=== PATIENT | female | born 1970 | race American Indian/Alaskan Native ===

== ENCOUNTER 2016-07-30 12:14 | Outpatient (CLI) | payer MEDICARE ==
--- NOTE | 2016-07-30 15:04 | Mammography Report ---
BILATERAL MAMMOGRAM: FINDINGS: The breasts are almost entirely fat (<25% glandular). No mass, distortion, suspicious calcification, or skin change is seen. There are no significant changes compared to her prior exams in 2015. CAD was utilized. IMPRESSION: Negative mammogram. There is no mammographic evidence of malignancy. RECOMMENDATION: Follow-up per ACS guidelines. BI-RADS CATEGORY: 1 = Negative ACR BI-RADS MAMMOGRAPHIC CODES: 0 = Needs additional imaging evaluation; 1 = Negative; 2 = Benign; 3 = Probably benign; 4 = Suspicious; 5 = Malignant; 6 = Known biopsy-proven malignancy COMMENT: 1. Dense breast tissue, i.e., adenosis, fibrocystic changes, etc., may obscure an underlying neoplasm. 2. Approximately 10% of cancers are not detected with mammography. 3. A negative mammography report should not delay biopsy if a clinically suspicious mass is present. COMMENT: Patient follow-up letters are generated in [employer].
== END 2016-07-30 12:15 | disposition home or self-care (01) ==
LOC: MAMMO 12:14
PROVIDERS: ATTEND Nurse Practitioner Family
DX: Z12.31 Encounter for screening mammogram for malignant neoplasm of breast (principal)
CPT/HCPCS: 77067; G0202

== ENCOUNTER 2018-03-23 08:34 | Emergency (ER) | payer MEDICARE ==
[2018-03-23 08:43] VITALS: BP 131/83
[2018-03-23] MEDS ORDERED: DELTASONE PO ONE (08:52)
[2018-03-23] MEDS ORDERED: ULTRAM PO ONE (08:52)
[2018-03-23 09:10] LABS: Hematocrit 45.1 % (30.3-42.9); Hemoglobin 15.6 gm/dl (10.1-14.3); Mean Corpuscular HGB Conc 35 % (30-34); Mean Corpuscular Volume 97 fl (79-97); Platelet Count 216 K/mm3 (140-440); Red Blood Count 4.63 M/mm3 (3.65-5.03); Red Cell Distribution Width 12.8 % (13.2-15.2)
--- NOTE | 2018-03-23 09:11 | Emergency Department Report ---
ED Back Pain/Injury HPI - General Chief Complaint: Extremity Problem,Nontraumatic Stated Complaint: RIGHT FOOT PAIN/SWELLING Time Seen by Provider: 03/23/18 08:52 Source: patient Limitations: No Limitations - History of Present Illness Initial Comments: Patient is a 47-year-old -[place] female comes to the ER tonight complaining of right foot pain. She has had no trauma. It started 2 days ago. Nothing makes it better or worse. She has no history of gout. Her only home medication is blood pressure medicines. - Related Data Home Medications Medication Instructions Recorded Confirmed Last Taken Emtricita/Rilpivirine/Tenof Df 1 tab PO DAILY 02/02/15 04/07/15 02/14/15 [Complera Tablet] Previous Rx's Medication Instructions Recorded Last Taken Type Albuterol Sulfate [Albuterol 0.63% 0.63 mg IH Q4HR PRN #2 ml 04/07/15 Unknown Rx NEBS] Albuterol Sulfate [Proair 90 mcg IH Q4HR PRN #2 aer.pow.ba 04/07/15 Unknown Rx Respiclick] Ipratropium [place] [Atrovent Hfa] 12.9 gm IH Q4HR #2 hfa.aer.ad 04/07/15 Unknown Rx Ipratropium [Atrovent NEB] 0.5 mg IH Q4HR #2 ml 04/07/15 Unknown Rx Naproxen [Naprosyn] 500 mg PO BID PRN #20 tablet 03/23/18 Unknown Rx predniSONE [Prednisone] 50 mg PO DAILY #5 tablet 03/23/18 Unknown Rx traMADol [Ultram] 50 mg PO Q8H PRN #12 tablet 03/23/18 Unknown Rx Allergies Allergy/AdvReac Type Severity Reaction Status Date / Time No Known Allergies Allergy Verified 02/23/15 15:21 ED Review of Systems ROS: Stated complaint: RIGHT FOOT PAIN/SWELLING Other details as noted in HPI Comment: All other systems reviewed and negative Constitutional: denies: chills Eyes: denies: eye pain ENT: denies: ear pain Respiratory: denies: cough Cardiovascular: denies: dyspnea on exertion Endocrine: denies: see HPI Gastrointestinal: denies: nausea Genitourinary: denies: urgency Musculoskeletal: as per HPI, other (r foot pain) Skin: denies: rash Neurological: denies: headache Psychiatric: denies: anxiety Hematological/Lymphatic: denies: easy bleeding ED Past Medical Hx - Past Medical History ANEMIA Psychiatric history: no pertinent history ED Back Pain Physical Exam - Exam General: Vital signs noted. No distress. Alert and acting appropriately. ambulatory full ROM of foot/ankle neurovasc intact dp plus 2 bilateral sensation normal hx arthritis Back/Abdomen: No Abdominal Tenderness, No Perithoracic Tenderness, No Perilumbar Tenderness, No Sacroiliac Tenderness, No Flank Tenderness, No Straight Leg Raise Pain Neuro: Yes Normal Sensation, Yes Normal DTR's, Yes Normal Gait, No Motor Weakness ED Course Vital Signs 03/23/18 08:39 Temperature 97.8 F Pulse Rate 72 Respiratory 20 Rate Blood Pressure 131/83 O2 Sat by Pulse 98 Oximetry ED Medical Decision Making - Lab Data Result diagrams: 03/23/18 08:54 03/23/18 08:54 - Medical Decision Making Lab Results 03/23/18 03/23/18 Range/Units 08:54 08:54 WBC 5.3 (4.5-11.0) K/mm3 RBC 4.63 (3.65-5.03) M/mm3 Hgb 15.6 H (10.1-14.3) gm/dl Hct 45.1 H (30.3-42.9) % MCV 97 (79-97) fl MCH 34 H (28-32) pg MCHC 35 H (30-34) % RDW 12.8 L (13.2-15.2) % Plt Count 216 (140-440) K/mm3 Sodium 140 (137-145) mmol/L Potassium 3.8 (3.6-5.0) mmol/L Chloride 99.1 (98-107) mmol/L Carbon Dioxide 28 (22-30) mmol/L Anion Gap 17 mmol/L BUN 11 (7-17) mg/dL Creatinine 1.0 (0.7-1.2) mg/dL Estimated GFR > 60 ml/min BUN/Creatinine Ratio 11 % Glucose 71 (65-100) mg/dL Uric Acid 5.9 (3.5-7.6) mg/dL Calcium 9.5 (8.4-10.2) mg/dL Labs noted given no trauma will treat conservatively and dc home with dc plan of care. Critical care attestation.: If time is entered above; I have spent that time in minutes in the direct care of this critically ill patient, excluding procedure time. ED Disposition Clinical Impression: Arthritis, Foot pain Disposition: - TO HOME OR SELFCARE Is pt being admited?: No Does the pt Need Aspirin: No Condition: Stable Instructions: Arthralgia (ED) Additional Instructions: rest elevate foot warm compresses meds as ordered today follow up pcp in 48 hours if persists diet as tolerated Prescriptions: Naproxen [Naprosyn] 500 mg PO BID PRN #20 tablet PRN Reason: Pain , Severe (7-10) predniSONE [Prednisone] 50 mg PO DAILY #5 tablet traMADol [Ultram] 50 mg PO Q8H PRN #12 tablet PRN Reason: Pain Referrals: MARIA ESTHER LEIGH MD [Staff Physician] - 3-5 Days Time of Disposition: 09:37
[2018-03-23 09:23] LABS: BUN/Creatinine Ratio 11; Blood Urea Nitrogen 11 mg/dL (7-17); Calcium 9.5 mg/dL (8.4-10.2); Hemolysis Index 14; Uric Acid 5.9 mg/dL (3.5-7.6)
== END 2018-03-23 10:21 | disposition home or self-care (01) ==
LOC: ED 08:34
DX: M19.071 Primary osteoarthritis, right ankle and foot (principal); D64.9 Anemia, unspecified
CPT/HCPCS: 36415; 80048; 84550; 85027; 99283; J7512

== ENCOUNTER 2018-04-09 22:18 | Emergency (ER) | payer MEDICARE ==
[2018-04-09 23:29] LABS: Basophils # (Auto) 0.1 K/mm3 (0.0-0.1); Basophils % (Auto) 0.6 % (0.0-1.8); Eosinophils # (Auto) 0.1 K/mm3 (0.0-0.4); Eosinophils % (Auto) 1.3 % (0.0-4.3); Hematocrit 46.9 % (30.3-42.9); Hemoglobin 16.1 gm/dl (10.1-14.3); Lymphocytes # (Auto) 1.4 K/mm3 (1.2-5.4); Lymphocytes % (Auto) 16.4 % (13.4-35.0); Mean Corpuscular HGB Conc 34 % (30-34); Mean Corpuscular Volume 98 fl (79-97); Monocytes # (Auto) 0.7 K/mm3 (0.0-0.8); Monocytes % (Auto) 8.5 % (0.0-7.3); Platelet Count 233 K/mm3 (140-440); Red Cell Distribution Width 12.9 % (13.2-15.2)
[2018-04-09] MEDS ORDERED: IBUPROFEN PO ONE (23:43)
[2018-04-09 23:44] LABS: BUN/Creatinine Ratio 15; Blood Urea Nitrogen 12 mg/dL (7-17); Calcium 9.4 mg/dL (8.4-10.2); Hemolysis Index 28
--- NOTE | 2018-04-09 23:54 | Emergency Department Report ---
ED General Adult HPI - General Chief complaint: Fever Stated complaint: CHEST PAIN Time Seen by Provider: 04/09/18 23:31 Source: patient Mode of arrival: Ambulatory Limitations: No Limitations - History of Present Illness Initial comments: 47-year-old female presents to ED with complaint of fever. Patient states she received the flu and pneumonia vaccines today. Patient currently having pain in her left upper arm where she received her pneumonia vaccine. She reports onset of chest and back pain, fever, body aches following her vaccine. She was a symptomatic prior to the shots. -: This afternoon Location: left, upper extremity Quality: aching Consistency: constant Improves with: none Worsens with: none Associated Symptoms: chest pain, fever/chills. denies: cough, headaches, nausea/vomiting, shortness of breath - Related Data Home Medications Medication Instructions Recorded Confirmed Last Taken Emtricita/Rilpivirine/Tenof Df 1 tab PO DAILY 02/02/15 04/07/15 02/14/15 [Complera Tablet] Previous Rx's Medication Instructions Recorded Last Taken Type Albuterol Sulfate [Albuterol 0.63% 0.63 mg IH Q4HR PRN #2 ml 04/07/15 Unknown Rx NEBS] Albuterol Sulfate [Proair 90 mcg IH Q4HR PRN #2 aer.pow.ba 04/07/15 Unknown Rx Respiclick] Ipratropium [place] [Atrovent Hfa] 12.9 gm IH Q4HR #2 hfa.aer.ad 04/07/15 Unknown Rx Ipratropium [Atrovent NEB] 0.5 mg IH Q4HR #2 ml 04/07/15 Unknown Rx Naproxen [Naprosyn] 500 mg PO BID PRN #20 tablet 03/23/18 Unknown Rx predniSONE [Prednisone] 50 mg PO DAILY #5 tablet 03/23/18 Unknown Rx traMADol [Ultram] 50 mg PO Q8H PRN #12 tablet 03/23/18 Unknown Rx Allergies Allergy/AdvReac Type Severity Reaction Status Date / Time No Known Allergies Allergy Verified 02/23/15 15:21 ED Review of Systems ROS: Stated complaint: CHEST PAIN Other details as noted in HPI Comment: All other systems reviewed and negative Constitutional: fever Respiratory: denies: cough, shortness of breath Cardiovascular: chest pain Gastrointestinal: denies: abdominal pain, nausea, vomiting Musculoskeletal: back pain, myalgia ED Past Medical Hx - Past Medical History Previous Medical History?: Yes Hx Hypertension: Yes (x 5 yrs) Hx Congestive Heart Failure: No Hx Diabetes: No Hx Asthma: Yes Hx COPD: No Hx HIV: Yes (dx 1990) Additional medical history: ANEMIA - Surgical History Past Surgical History?: Yes Additional Surgical History: x 2. HYSTERECTOMY. TL - Social History Smoking Status: Never Smoker Substance Use Type: None - Medications Home Medications: Home Medications Medication Instructions Recorded Confirmed Last Taken Type Emtricita/Rilpivirine/Tenof Df 1 tab PO DAILY 02/02/15 04/07/15 02/14/15 History [Complera Tablet] Albuterol Sulfate [Albuterol 0.63% 0.63 mg IH Q4HR PRN #2 ml 04/07/15 Unknown Rx NEBS] Albuterol Sulfate [Proair 90 mcg IH Q4HR PRN #2 aer.pow.ba 04/07/15 Unknown Rx Respiclick] Ipratropium [place] [Atrovent Hfa] 12.9 gm IH Q4HR #2 hfa.aer.ad 04/07/15 Unknown Rx Ipratropium [Atrovent NEB] 0.5 mg IH Q4HR #2 ml 04/07/15 Unknown Rx Naproxen [Naprosyn] 500 mg PO BID PRN #20 tablet 03/23/18 Unknown Rx predniSONE [Prednisone] 50 mg PO DAILY #5 tablet 03/23/18 Unknown Rx traMADol [Ultram] 50 mg PO Q8H PRN #12 tablet 03/23/18 Unknown Rx ED Physical Exam - General Limitations: No Limitations General appearance: alert, in no apparent distress - Head Head exam: Present: atraumatic, normocephalic - Eye Eye exam: Present: normal appearance - ENT ENT exam: Present: mucous membranes moist - Neck Neck exam: Present: normal inspection - Respiratory Respiratory exam: Present: normal lung sounds bilaterally. Absent: respiratory distress - Cardiovascular Cardiovascular Exam: Present: normal rhythm, tachycardia - GI/Abdominal GI/Abdominal exam: Present: soft. Absent: distended, tenderness - Extremities Exam Extremities exam: Present: other (swelling present to left upper arm, no erythema or induration) - Back Exam Back exam: Absent: CVA tenderness (R), CVA tenderness (L) - Neurological Exam Neurological exam: Present: alert, oriented X3 - Psychiatric Psychiatric exam: Present: normal affect, normal mood - Skin Skin exam: Present: warm, dry, intact, normal color ED Course Vital Signs 04/09/18 04/09/18 04/10/18 22:45 23:38 00:24 Temperature 99.5 F 100.3 F H Pulse Rate 129 H 102 H 105 H Respiratory 18 19 19 Rate Blood Pressure 130/95 Blood Pressure 135/83 119/85 [Right] O2 Sat by Pulse 98 100 98 Oximetry ED Medical Decision Making - Lab Data Result diagrams: 04/09/18 23:05 04/09/18 23:05 - EKG Data -: EKG Interpreted by Me EKG shows normal: sinus rhythm, axis, intervals, QRS complexes, ST-T waves Rate: tachycardia - EKG Data Interpretation: no acute changes Critical care attestation.: If time is entered above; I have spent that time in minutes in the direct care of this critically ill patient, excluding procedure time. ED Disposition Clinical Impression: Vaccination complication Disposition: - TO HOME OR SELFCARE Is pt being admited?: No Condition: Stable Instructions: Fever in Adults (ED) Referrals: DALLAS PIRES MD [Primary Care Provider] - 3-5 Days Time of Disposition: 00:58
[2018-04-10 01:10] VITALS: BP 106/64
== END 2018-04-10 01:10 | disposition home or self-care (01) ==
LOC: ED 22:18
DX: T88.1XXA Other complications following immunization, not elsewhere classified, initial encounter (principal); I10 Essential (primary) hypertension; J45.909 Unspecified asthma, uncomplicated; Z86.2 Personal history of diseases of the blood and blood-forming organs and certain disorders involving the immune mechanism; Z90.710 Acquired absence of both cervix and uterus; Z79.899 Other long term (current) drug therapy
CPT/HCPCS: 36415; 80048; 84484; 85025; 93005; 93010

== ENCOUNTER 2018-11-11 14:21 | Outpatient (CLI) | payer MEDICARE ==
--- NOTE | 2018-11-11 16:05 | Mammography Report ---
BILATERAL DIGITAL SCREENING MAMMOGRAM WITH CAD INDICATION: Routine screening mammography. TECHNIQUE: Digital bilateral 2D mammography was obtained in the craniocaudal and mediolateral obliq ue projections. This examination was interpreted with the benefit of Computer-Aided Detection analysi s. COMPARISON: 07/30/2016 FINDINGS: Breast Density: The breasts are almost entirely fatty. No mass, architectural distortion or suspicious calcifications. IMPRESSION:No mammographic evidence of malignancy. BI-RADS Category 1: Negative. No mammographic evidence of malignancy. Recommend routine screening m ammography in one year. A "normal" or negative report should not discourage follow up or biopsy of a clinically significant f inding. A written summary of these findings will be mailed to the patient. The patient will be entered into a mammography reporting system which will generate a reminder letter for the patient's next appointmen t at the appropriate interval. The [employer] recommends yearly mammograms starting at age 40 and continuing as l marivel as a woman is in good health. Breast MRI is recommended for women with an approximate 20-25% or greater lifetime risk of breast cancer, including women with a strong family history of breast or ova kulwinder cancer or who have been treated for Hodgkin's disease. Signer Name: Cristofer Sutton MD Signed: 11/11/2018 4:01 PM Workstation Name: [id number]
== END 2018-11-11 14:22 | disposition home or self-care (01) ==
LOC: MAMMO 14:21
PROVIDERS: ATTEND Pediatrics
DX: Z12.31 Encounter for screening mammogram for malignant neoplasm of breast (principal); J45.909 Unspecified asthma, uncomplicated; I10 Essential (primary) hypertension
CPT/HCPCS: 77067

== ENCOUNTER 2019-02-14 15:32 | Emergency (ER) | payer MEDICARE ==
--- NOTE | 2019-02-14 16:25 | Emergency Department Report ---
Blank Doc - Documentation Documentation: 48-year-old female that presents with SOB, wheezing, and cough. This initial assessment/diagnostic orders/clinical plan/treatment(s) is/are subject to change based on patient's health status, clinical progression and re- assessment by fellow clinical providers in the ED. Further treatment and workup at subsequent clinical providers discretion. Patient/guardians urged not to elope from the ED as their condition may be serious if not clinically assessed and managed. Initial orders include: 1- Patient sent to [facility] for further evaluation and treatment 2- CXR 3- breathing treatment/steroids
[2019-02-14] MEDS ORDERED: ALBUTEROL 2.5 MG/3 ML NEBU IH ONE (16:26)
[2019-02-14] MEDS ORDERED: dexAMETHasone 20 MG/5 ML VIAL IM ONE (16:26)
[2019-02-14] MEDS ORDERED: IPRATROPIUM 0.02% NEBU 2.5 ML IH ONE (16:26)
--- NOTE | 2019-02-14 17:08 | XRay Report ---
CHEST 2 VIEWS INDICATION: MAIN: cough/wheezing/sob; Pt. c/o SOB, chills, cough and chest tightness. Pt. has hx of asthma, HIV and Htn. . COMPARISON: Chest x-ray from 04/07/2015 FINDINGS: Support devices: None. Heart: Within normal limits. Lungs/pleura: No acute air space or interstitial disease. No pneumothorax. Additional findings: None. IMPRESSION: 1. No acute findings. Signer Name: Tang Galindo MD Signed: 02/14/2019 5:04 PM Workstation Name: [id number]
--- NOTE | 2019-02-14 19:10 | Emergency Department Report ---
ED Asthma HPI - General Chief Complaint: Upper Respiratory Infection Stated Complaint: HARD TO BREATH Time Seen by Provider: 02/14/19 16:24 Source: patient Mode of arrival: Ambulatory Limitations: No Limitations - History of Present Illness Initial Comments: This is a 48-year-old -[place] female with a history of asthma, hypertension, and HIV. Patient states she's been experiencing shortness of breath and wheezing for the past 2 days. Patient denies fevers or chills patient has h ad one episode of nausea vomiting, however she is tolerating by mouth intake at this time. As a sensory level 4/10 with primary symptom of wheezing. patient advises adherence with all medications including antivirals. There ie no cp , no dizziness, no lightheadedness, no fever or chills, no n/v , no back pain , diaphoresis. MD Complaint: shortness of breath, wheezing -: Gradual Asthma History: childhood onset Severity: moderate Context: recent URI Associated Symptoms: dry cough Treatments Prior to Arrival: inhaled bronchodilator - Related Data Current Asthma Therapy: inhaled bronchodilator Home Medications Medication Instructions Recorded Confirmed Last Taken Emtricita/Rilpivirine/Tenof Df 1 tab PO DAILY 02/02/15 04/07/15 02/14/15 [Complera Tablet] Previous Rx's Medication Instructions Recorded Last Taken Type Albuterol Sulfate [Albuterol 0.63% 0.63 mg IH Q4HR PRN #2 ml 04/07/15 Unknown Rx NEBS] Albuterol Sulfate [Proair 90 mcg IH Q4HR PRN #2 aer.pow.ba 04/07/15 Unknown Rx Respiclick] Ipratropium [place] [Atrovent Hfa] 12.9 gm IH Q4HR #2 hfa.aer.ad 04/07/15 Unknown Rx Ipratropium [Atrovent NEB] 0.5 mg IH Q4HR #2 ml 04/07/15 Unknown Rx Naproxen [Naprosyn] 500 mg PO BID PRN #20 tablet 03/23/18 Unknown Rx predniSONE [Prednisone] 50 mg PO DAILY #5 tablet 03/23/18 Unknown Rx traMADoL [Ultram] 50 mg PO Q8H PRN #12 tablet 03/23/18 Unknown Rx ALBUTEROL Inhaler (OR & NICU) 2 puff IH QID PRN #8.5 gram 02/14/19 Unknown Rx [ProAir HFA Inhaler] Azithromycin [Zithromax Z-HUSSEIN] 250 mg PO DAILY #1 tab 02/14/19 Unknown Rx Benzonatate [Tessalon Perles] 100 mg PO Q8HR PRN #30 capsule 02/14/19 Unknown Rx Ibuprofen [Motrin 800 MG tab] 800 mg PO Q8HR PRN #30 tablet 02/14/19 Unknown Rx Ipratropium (Nf) [Atrovent HFA 2 puff IH Q6HR PRN #1 inha 02/14/19 Unknown Rx 17MCG/PUFF] dexAMETHasone [Decadron] 4 mg PO Q12H 3 Days #6 tablet 02/14/19 Unknown Rx Allergies Allergy/AdvReac Type Severity Reaction Status Date / Time No Known Allergies Allergy Verified 02/23/15 15:21 ED Review of Systems ROS: Stated complaint: HARD TO BREATH Other details as noted in HPI Constitutional: denies: chills, fever Eyes: denies: eye pain, eye discharge, vision change ENT: congestion Respiratory: cough, shortness of breath, wheezing Cardiovascular: denies: chest pain, palpitations Endocrine: no symptoms reported Gastrointestinal: denies: abdominal pain, nausea, vomiting, diarrhea Genitourinary: denies: urgency, dysuria, discharge Musculoskeletal: denies: back pain, joint swelling, arthralgia Skin: denies: rash, lesions Neurological: denies: headache, weakness, paresthesias Psychiatric: as per HPI Hematological/Lymphatic: denies: easy bleeding, easy bruising ED Past Medical Hx - Past Medical History Previous Medical History?: Yes Hx Hypertension: Yes (x 5 yrs) Hx Congestive Heart Failure: No Hx Diabetes: No Hx Asthma: Yes Hx COPD: No Hx HIV: Yes (dx 1990) Additional medical history: ANEMIA - Surgical History Past Surgical History?: Yes Additional Surgical History: x 2. HYSTERECTOMY. TL - Social History Smoking Status: Never Smoker Substance Use Type: None - Medications Home Medications: Home Medications Medication Instructions Recorded Confirmed Last Taken Type Emtricita/Rilpivirine/Tenof Df 1 tab PO DAILY 02/02/15 04/07/15 02/14/15 History [Complera Tablet] Albuterol Sulfate [Albuterol 0.63% 0.63 mg IH Q4HR PRN #2 ml 04/07/15 Unknown Rx NEBS] Albuterol Sulfate [Proair 90 mcg IH Q4HR PRN #2 aer.pow.ba 04/07/15 Unknown Rx Respiclick] Ipratropium [place] [Atrovent Hfa] 12.9 gm IH Q4HR #2 hfa.aer.ad 04/07/15 Unknown Rx Ipratropium [Atrovent NEB] 0.5 mg IH Q4HR #2 ml 04/07/15 Unknown Rx Naproxen [Naprosyn] 500 mg PO BID PRN #20 tablet 03/23/18 Unknown Rx predniSONE [Prednisone] 50 mg PO DAILY #5 tablet 03/23/18 Unknown Rx traMADoL [Ultram] 50 mg PO Q8H PRN #12 tablet 03/23/18 Unknown Rx ALBUTEROL Inhaler (OR & NICU) 2 puff IH QID PRN #8.5 gram 02/14/19 Unknown Rx [ProAir HFA Inhaler] Azithromycin [Zithromax Z-HUSSEIN] 250 mg PO DAILY #1 tab 02/14/19 Unknown Rx Benzonatate [Tessalon Perles] 100 mg PO Q8HR PRN #30 capsule 02/14/19 Unknown Rx Ibuprofen [Motrin 800 MG tab] 800 mg PO Q8HR PRN #30 tablet 02/14/19 Unknown Rx Ipratropium (Nf) [Atrovent HFA 2 puff IH Q6HR PRN #1 inha 02/14/19 Unknown Rx 17MCG/PUFF] dexAMETHasone [Decadron] 4 mg PO Q12H 3 Days #6 tablet 02/14/19 Unknown Rx ED Physical Exam - General Limitations: No Limitations General appearance: alert - Head Head exam: Present: atraumatic, normocephalic - Eye Eye exam: Present: normal appearance, PERRL, EOMI Pupils: Present: normal accommodation - ENT ENT exam: Present: normal orophraynx, mucous membranes moist, TM's normal bilaterally, normal external ear exam - Neck Neck exam: Present: normal inspection - Respiratory Respiratory exam: Present: normal lung sounds bilaterally. Absent: respiratory distress - Cardiovascular Cardiovascular Exam: Present: regular rate, normal rhythm. Absent: systolic murmur, diastolic murmur, rubs, gallop - GI/Abdominal GI/Abdominal exam: Present: soft, normal bowel sounds - Rectal Rectal exam: Present: deferred - Extremities Exam Extremities exam: Present: normal inspection, full ROM, normal capillary refill. Absent: tenderness - Back Exam Back exam: Present: normal inspection, full ROM. Absent: tenderness, CVA tenderness (R), CVA tenderness (L) - Neurological Exam Neurological exam: Present: alert, oriented X3, CN II-XII intact, normal gait, reflexes normal - Psychiatric Psychiatric exam: Present: normal affect, normal mood - Skin Skin exam: Present: warm, dry, intact, normal color. Absent: rash ED Course Vital Signs 02/14/19 02/14/19 02/14/19 16:26 19:37 19:50 Temperature 99.2 F Pulse Rate 103 H 114 H Respiratory 24 18 18 Rate Blood Pressure 199/117 186/96 O2 Sat by Pulse 99 92 92 Oximetry ED Medical Decision Making - EKG Data EKG shows normal: sinus rhythm, QRS complexes, ST-T waves Rate: normal - EKG Data Interpretation: normal EKG (ekg interp y ed attding ) - Radiology Data Radiology results: pending, report reviewed, image reviewed Ordering Physician: JANELL JEAN NP Date of Service: 02/14/19 Procedure(s): XR chest routine 2V Accession Number(s): [id number] cc: JANELL JEAN NP Fluoro Time In Minutes: CHEST 2 VIEWS INDICATION: MAIN: cough/wheezing/sob; Pt. c/o SOB, chills, cough and chest tightness. Pt. has hx of asthma, HIV and Htn. . COMPARISON: Chest x-ray from 04/07/2015 FINDINGS: Support devices: None. Heart: Within normal limits. Lungs/pleura: No acute air space or interstitial disease. No pneumothorax. Additional findings: None. IMPRESSION: 1. No acute findings. Signer Name: Tang Galindo MD Signed: 02/14/2019 5:04 PM Workstation Name: [id number] Transcribed By: INDU Dictated By: Tang Galindo MD Electronically Authenticated By: Tang Galindo MD Signed Date/Time: 02/14/191703 DD/ 02 TD/TT: - Medical Decision Making Patient states symptoms have improved in some bathroom and back without given increasing shortness of breath. pt is a/o 3 . mabulatory i Critical Care Time: No Critical care attestation.: If time is entered above; I have spent that time in minutes in the direct care of this critically ill patient, excluding procedure time. ED Disposition Clinical Impression: Bronchitis Asthma Qualifiers: Asthma severity: moderate Asthma persistence: unspecified Asthma complication type: with acute exacerbation Qualified Code(s): J45.901 - Unspecified asthma with (acute) exacerbation Disposition: OP ADMIT IP TO THIS HOSP Is pt being admited?: No Does the pt Need Aspirin: No Condition: Stable Instructions: Asthma (ED), Chronic Bronchitis (ED) Prescriptions: Ipratropium (Nf) [Atrovent HFA 17MCG/PUFF] 2 puff IH Q6HR PRN #1 inha PRN Reason: Shortness Of Breath dexAMETHasone [Decadron] 4 mg PO Q12H 3 Days #6 tablet Ibuprofen [Motrin 800 MG tab] 800 mg PO Q8HR PRN #30 tablet PRN Reason: Pain , Severe (7-10) ALBUTEROL Inhaler (OR & NICU) [ProAir HFA Inhaler] 2 puff IH QID PRN #8.5 gram PRN Reason: Shortness Of Breath Benzonatate [Tessalon Perles] 100 mg PO Q8HR PRN #30 capsule PRN Reason: cough Azithromycin [Zithromax Z-HUSSEIN] 250 mg PO DAILY #1 tab Referrals: CARLOS MANUEL PEDRAZA MD [Staff Physician] - 3-5 Days PRIMARY CARE, [Referring] - 3-5 Days Forms: Work/School Release Form(ED) Time of Disposition: 20:40
[2019-02-14 19:51] VITALS: BP 186/96
== END 2019-02-14 20:50 | disposition admitted as inpatient to this hospital (09) ==
LOC: ED 15:32
DX: J45.901 Unspecified asthma with (acute) exacerbation (principal); J40 Bronchitis, not specified as acute or chronic
CPT/HCPCS: 71046; 96372; 99283; J1100

== ENCOUNTER 2020-04-18 09:30 | Outpatient (CLI) | payer MEDICARE ==
--- NOTE | 2020-04-18 10:34 | Mammography Report ---
DIGITAL SCREENING MAMMOGRAM WITH CAD, 04/18/2020 CLINICAL INFORMATION / INDICATION: Routine screening mammography. TECHNIQUE: Digital bilateral 2D mammography was obtained in the craniocaudal and mediolateral obliqu e projections. This examination was interpreted with the benefit of Computer-Aided Detection analysis . COMPARISON: 11/11/2018 FINDINGS: Breast Density: The breasts are almost entirely fatty. No dominant mass, suspicious calcifications, or architectural distortion in either breast. No interval change. IMPRESSION: No mammographic evidence of malignancy. Follow up recommendation: Routine yearly BI-RADS Category 1: Negative. A "normal" or negative report should not discourage follow up or biopsy of a clinically significant f inding. A written summary of these findings will be mailed to the patient. The patient will be entered into a mammography reporting system which will generate a reminder letter for the patient's next appointmen t at the appropriate interval. The [employer] recommends yearly mammograms starting at age 40 and continuing as l marivel as a woman is in good health. Breast MRI is recommended for women with an approximate 20-25% or greater lifetime risk of breast cancer, including women with a strong family history of breast or ova kulwinder cancer or who have been treated for Hodgkin's disease. Signer Name: Elizabeth Verdin MD Signed: 04/18/2020 10:29 AM Workstation Name: [email or web address]
== END 2020-04-18 09:31 | disposition home or self-care (01) ==
LOC: MAMMO 09:30
PROVIDERS: ATTEND Pediatrics
DX: Z12.31 Encounter for screening mammogram for malignant neoplasm of breast (principal)
CPT/HCPCS: 77067

== ENCOUNTER 2021-03-25 10:23 | Emergency (ER) | payer MEDICARE ==
--- NOTE | 2021-03-25 12:27 | Emergency Department Report ---
ED Dizziness HPI - General Chief Complaint: Dizziness Stated Complaint: LIGHT HEAD Time Seen by Provider: 03/25/21 12:10 Source: patient Mode of arrival: Ambulatory Limitations: No Limitations - History of Present Illness Initial Comments: 50-year-old female presents to the ED with a history HIV ,Asthma ,Hypothyroid that she was lying in bed and attempted to get up and noticed that her head starts spinning and dizziness. Patient states that when she was able to sit in chair noticed that the spinning stopped. Patient has arrived in ED patient has no further complaint of dizziness. Patient denies any headache ,chest pain or shortness of breath. No acute distress noted. No ill appearance noted. MD Complaint: dizziness -: This morning Timing: sudden onset Description: "room spinning" History of Trauma: No Severity: mild Improves With: remaining still Worsens With: movement Associated Symptoms: denies other symptoms - Related Data Home Medications Medication Instructions Recorded Confirmed Last Taken Emtricita/Rilpivirine/Tenof Df 1 tab PO DAILY 02/02/15 04/07/15 02/14/15 [Complera Tablet] Previous Rx's Medication Instructions Recorded Last Taken Type Albuterol Sulfate [Albuterol 0.63% 0.63 mg IH Q4HR PRN #2 ml 04/07/15 Unknown Rx NEBS] Albuterol Sulfate [Proair 90 mcg IH Q4HR PRN #2 aer.pow.ba 04/07/15 Unknown Rx Respiclick] Ipratropium [place] [Atrovent Hfa] 12.9 gm IH Q4HR #2 hfa.aer.ad 04/07/15 Unknown Rx Ipratropium [Atrovent NEB] 0.5 mg IH Q4HR #2 ml 04/07/15 Unknown Rx Naproxen [Naprosyn] 500 mg PO BID PRN #20 tablet 03/23/18 Unknown Rx predniSONE [Prednisone] 50 mg PO DAILY #5 tablet 03/23/18 Unknown Rx traMADoL [Ultram] 50 mg PO Q8H PRN #12 tablet 03/23/18 Unknown Rx Albuterol Mdi (or & Nicu Only) 2 puff IH QID PRN #8.5 gram 02/14/19 Unknown Rx [ProAir HFA Inhaler] Azithromycin [Zithromax Z-HUSSEIN] 250 mg PO DAILY #1 tab 02/14/19 Unknown Rx Benzonatate [Tessalon Perles] 100 mg PO Q8HR PRN #30 capsule 02/14/19 Unknown Rx Ibuprofen [Motrin 800 MG tab] 800 mg PO Q8HR PRN #30 tablet 02/14/19 Unknown Rx Ipratropium (Nf) [Atrovent HFA 2 puff IH Q6HR PRN #1 inha 02/14/19 Unknown Rx 17MCG/PUFF] dexAMETHasone [Decadron] 4 mg PO Q12H 3 Days #6 tablet 02/14/19 Unknown Rx Meclizine [Antivert] 25 mg PO TID PRN #30 tab 03/25/21 Unknown Rx Allergies Allergy/AdvReac Type Severity Reaction Status Date / Time No Known Allergies Allergy Verified 02/23/15 15:21 ED Review of Systems ROS: Stated complaint: LIGHT HEAD Other details as noted in HPI Constitutional: denies: chills, fever Eyes: denies: eye pain, eye discharge, vision change ENT: denies: ear pain, throat pain Respiratory: denies: cough, shortness of breath, wheezing Cardiovascular: denies: chest pain, palpitations Endocrine: no symptoms reported Gastrointestinal: denies: abdominal pain, nausea, diarrhea Genitourinary: denies: urgency, dysuria, discharge Musculoskeletal: denies: back pain, joint swelling, arthralgia Skin: denies: rash, lesions Neurological: denies: headache, weakness, paresthesias Psychiatric: denies: anxiety, depression Hematological/Lymphatic: denies: easy bleeding, easy bruising ED Past Medical Hx - Past Medical History Previous Medical History?: Yes Hx Hypertension: Yes (x 5 yrs) Hx Congestive Heart Failure: No Hx Diabetes: No Hx Asthma: Yes Hx COPD: No Hx HIV: Yes (dx 1990) Additional medical history: ANEMIA - Surgical History Past Surgical History?: Yes Additional Surgical History: x 2. HYSTERECTOMY. TL - Social History Smoking Status: Never Smoker Substance Use Type: None - Medications Home Medications: Home Medications Medication Instructions Recorded Confirmed Last Taken Type Emtricita/Rilpivirine/Tenof Df 1 tab PO DAILY 02/02/15 04/07/15 02/14/15 History [Complera Tablet] Albuterol Sulfate [Albuterol 0.63% 0.63 mg IH Q4HR PRN #2 ml 04/07/15 Unknown Rx NEBS] Albuterol Sulfate [Proair 90 mcg IH Q4HR PRN #2 aer.pow.ba 04/07/15 Unknown Rx Respiclick] Ipratropium [place] [Atrovent Hfa] 12.9 gm IH Q4HR #2 hfa.aer.ad 04/07/15 Unknown Rx Ipratropium [Atrovent NEB] 0.5 mg IH Q4HR #2 ml 04/07/15 Unknown Rx Naproxen [Naprosyn] 500 mg PO BID PRN #20 tablet 03/23/18 Unknown Rx predniSONE [Prednisone] 50 mg PO DAILY #5 tablet 03/23/18 Unknown Rx traMADoL [Ultram] 50 mg PO Q8H PRN #12 tablet 03/23/18 Unknown Rx Albuterol Mdi (or & Nicu Only) 2 puff IH QID PRN #8.5 gram 02/14/19 Unknown Rx [ProAir HFA Inhaler] Azithromycin [Zithromax Z-HUSSEIN] 250 mg PO DAILY #1 tab 02/14/19 Unknown Rx Benzonatate [Tessalon Perles] 100 mg PO Q8HR PRN #30 capsule 02/14/19 Unknown Rx Ibuprofen [Motrin 800 MG tab] 800 mg PO Q8HR PRN #30 tablet 02/14/19 Unknown Rx Ipratropium (Nf) [Atrovent HFA 2 puff IH Q6HR PRN #1 inha 02/14/19 Unknown Rx 17MCG/PUFF] dexAMETHasone [Decadron] 4 mg PO Q12H 3 Days #6 tablet 02/14/19 Unknown Rx Meclizine [Antivert] 25 mg PO TID PRN #30 tab 03/25/21 Unknown Rx ED Physical Exam - General Limitations: No Limitations General appearance: alert, in no apparent distress - Head Head exam: Present: atraumatic, normocephalic - Eye Eye exam: Present: normal appearance - ENT ENT exam: Present: mucous membranes moist - Neck Neck exam: Present: normal inspection - Respiratory Respiratory exam: Present: normal lung sounds bilaterally. Absent: respiratory distress - Cardiovascular Cardiovascular Exam: Present: regular rate, normal rhythm. Absent: systolic murmur, diastolic murmur, rubs, gallop - GI/Abdominal GI/Abdominal exam: Present: soft, normal bowel sounds - Extremities Exam Extremities exam: Present: normal inspection - Back Exam Back exam: Present: normal inspection - Neurological Exam Neurological exam: Present: alert, oriented X3 - Psychiatric Psychiatric exam: Present: normal affect, normal mood - Skin Skin exam: Present: warm, dry, intact, normal color. Absent: rash ED Course Vital Signs 03/25/21 03/25/21 11:59 14:45 Temperature 98 F 98.0 F Pulse Rate 95 H 83 Respiratory 16 20 Rate Blood Pressure 158/88 128/78 [Left] O2 Sat by Pulse 96 98 Oximetry ED Medical Decision Making - Lab Data Result diagrams: 03/25/21 12:31 03/25/21 12:31 - EKG Data EKG shows normal: sinus rhythm Rate: normal - EKG Data Interpretation: normal EKG - Medical Decision Making 50-year-old female presents to the ED with a history HIV ,Asthma ,Hypothyroid that she was lying in bed and attempted to get up and noticed that her head starts spinning and dizziness. Patient states that when she was able to sit in chair noticed that the spinning stopped. Patient has arrived in ED patient has no further complaint of dizziness. Patient denies any headache ,chest pain or shortness of breath. No acute distress noted. No ill appearance noted. EKG performed normal sinus rhythm, lab work drawn with all within normal limits. Discussed findings with patient. She verbalized understanding. D discussed clinical findings with patient. Patient to follow-up with primary care doctor. Return to the ED for any worsening symptoms. Critical care attestation.: If time is entered above; I have spent that time in minutes in the direct care of this critically ill patient, excluding procedure time. ED Disposition Clinical Impression: Vertigo Disposition: HOME / SELF CARE / HOMELESS Is pt being admited?: No Does the pt Need Aspirin: No Condition: Stable Additional Instructions: Medication as prescribed Drink plenty of fluids Return to ED for any worsening symptoms Prescriptions: Meclizine [Antivert] 25 mg PO TID PRN #30 tab PRN Reason: Vertigo Referrals: PRIMARY CARE, [Primary Care Provider] - 3-5 Days [facility] [Provider Group] - 3-5 Days Forms: Work/School Release Form(ED) Time of Disposition: 14:24
[2021-03-25 12:52] LABS: Basophils % (Auto) 0.8 % (0.0-1.8); Eosinophils # (Auto) 0.1 K/mm3 (0.0-0.4); Eosinophils % (Auto) 3.1 % (0.0-4.3); Hematocrit 45.1 % (30.3-42.9); Hemoglobin 14.6 gm/dl (10.1-14.3); Lymphocytes # (Auto) 1.6 K/mm3 (1.2-5.4); Lymphocytes % (Auto) 34.5 % (13.4-35.0); Mean Corpuscular HGB Conc 32 % (30-34); Mean Corpuscular Volume 96 fl (79-97); Monocytes # (Auto) 0.5 K/mm3 (0.0-0.8); Monocytes % (Auto) 10.6 % (0.0-7.3); Platelet Count 254 K/mm3 (140-440); Red Blood Count 4.72 M/mm3 (3.65-5.03); Red Cell Distribution Width 13.2 % (13.2-15.2)
[2021-03-25 13:12] LABS: Alanine Aminotransferase 29 units/L (7-56); Albumin 4.5 g/dL (3.9-5); BUN/Creatinine Ratio 13; Blood Urea Nitrogen 12 mg/dL (7-17); Calcium 9.8 mg/dL (8.4-10.2); Hemolysis Index 46
[2021-03-25 14:47] VITALS: BP 128/78
--- NOTE | 2021-03-26 09:58 | Electrocardiograph Report ---
[facility] Test Date: 2021-03-25 Test Time: 12:25:51 Pat Name: ELLIOT PEMBERTON Department: Room: Gender: F Automation Tender: TECH : 1970 Requested By: SAMIA PEMBERTON Order Number: [id number] Reading MD: Gen Gill Measurements Intervals [place] Rate: 84 P: 68 ME: 197 QRS: 46 QRSD: 81 T: 44 QT: 350 QTc: 415 Interpretive Statements Sinus rhythm Consider anterior infarct No previous ECG available for comparison Electronically Signed On 03-26-2021 9:58:44 EST by Gen Gill
== END 2021-03-25 14:45 | disposition home or self-care (01) ==
LOC: ED 10:23
DX: R42 Dizziness and giddiness (principal); I10 Essential (primary) hypertension
CPT/HCPCS: 36415; 80053; 85025; 93005; 99283

== ENCOUNTER 2021-03-29 03:46 | Emergency (ER) | payer MEDICARE ==
[2021-03-29] MEDS ORDERED: ACETAMINOPHEN 325 MG TAB PO ONE (04:00)
[2021-03-29] MEDS ORDERED: IBUPROFEN 400 MG TAB PO ONE (04:00)
--- NOTE | 2021-03-29 04:01 | Emergency Department Report ---
<KARLENE CABA - Last Filed: 03/29/21 05:32> ED General Adult HPI - General Chief complaint: Arrhythmia/Palpitations Stated complaint: My left arm is hurting, my heart is racing Time Seen by Provider: 03/29/21 03:51 Source: patient, RN notes reviewed, old records reviewed Mode of arrival: Ambulatory Limitations: No Limitations - History of Present Illness Initial comments: The patient was evaluated in the emergency department for symptoms described in the history of present illness. He/she was evaluated in the context of the global COVID-19 pandemic, which necessitated consideration that the patient might be at risk for infection with the virus that causes COVID-19. Institutional protocols and algorithms that pertain to the evaluation of patients at risk for COVID-19 are in a state of rapid change based on inform ation released by regulatory bodies including the CDC and federal and state organizations. These policies and algorithms were followed during the patient's care in the emergency department. Please note that these policies, procedures and recommendations changed on a rapid basis. Patient is a 50-year-old female. Her past medical history includes obesity, COVID-19 vaccination not complete, HIV positive, on antiviral therapy. Patient presents to the ER today with a complaint of nontraumatic left anterior bicep pain, which does not radiate any prior, sensation of heart racing, "it feels like my heart is going to jump out of my chest." The patient also endorses subjective chills. No headache or neck pain. No abdominal pain. No vomiting or diaphoresis. Denies exertional chest pain. Denies travel, surgery, immobilization, DVT/PE risk factors. Symptoms have been present for about 4 to 5 hours. They do not radiate anywhere. She does not describe exacerbating or relieving factors. She does endorse a bit of chest pressure/heart racing -: Gradual, hour(s) Location: chest, upper extremity Consistency: constant Improves with: none Worsens with: none - Related Data Home Medications Medication Instructions Recorded Confirmed Last Taken Emtricita/Rilpivirine/Tenof Df 1 tab PO DAILY 02/02/15 04/07/15 02/14/15 [Complera Tablet] Previous Rx's Medication Instructions Recorded Last Taken Type Albuterol Sulfate [Albuterol 0.63% 0.63 mg IH Q4HR PRN #2 ml 04/07/15 Unknown Rx NEBS] Albuterol Sulfate [Proair 90 mcg IH Q4HR PRN #2 aer.pow.ba 04/07/15 Unknown Rx Respiclick] Ipratropium [facility] [Atrovent Hfa] 12.9 gm IH Q4HR #2 hfa.aer.ad 04/07/15 Unknown Rx Ipratropium [Atrovent NEB] 0.5 mg IH Q4HR #2 ml 04/07/15 Unknown Rx Naproxen [Naprosyn] 500 mg PO BID PRN #20 tablet 03/23/18 Unknown Rx predniSONE [Prednisone] 50 mg PO DAILY #5 tablet 03/23/18 Unknown Rx Albuterol Mdi (or & Nicu Only) 2 puff IH QID PRN #8.5 gram 02/14/19 Unknown Rx [ProAir HFA Inhaler] Azithromycin [Zithromax Z-HUSSEIN] 250 mg PO DAILY #1 tab 02/14/19 Unknown Rx Benzonatate [Tessalon Perles] 100 mg PO Q8HR PRN #30 capsule 02/14/19 Unknown Rx Ipratropium (Nf) [Atrovent HFA 2 puff IH Q6HR PRN #1 inha 02/14/19 Unknown Rx 17MCG/PUFF] dexAMETHasone [Decadron] 4 mg PO Q12H 3 Days #6 tablet 02/14/19 Unknown Rx Meclizine [Antivert] 25 mg PO TID PRN #30 tab 03/25/21 Unknown Rx Acetaminophen [Non-Aspirin Extra 500 mg PO Q6HR PRN #30 tablet 03/29/21 Unknown Rx Strength] Ibuprofen [Motrin] 600 mg PO Q8H PRN #30 tablet 03/29/21 Unknown Rx Allergies Allergy/AdvReac Type Severity Reaction Status Date / Time No Known Allergies Allergy Verified 03/29/21 03:49 ED Review of Systems Constitutional: chills Eyes: denies: eye discharge Respiratory: denies: cough Cardiovascular: as per HPI, palpitations Gastrointestinal: denies: abdominal pain, nausea, vomiting, diarrhea Neurological: denies: weakness Psychiatric: anxiety ED Past Medical Hx - Past Medical History Hx Hypertension: Yes (x 5 yrs) Hx Congestive Heart Failure: No Hx Diabetes: No Hx Asthma: Yes Hx COPD: No Hx HIV: Yes (dx 1990) Additional medical history: ANEMIA - Surgical History Additional Surgical History: x 2. HYSTERECTOMY. TL - Social History Smoking Status: Never Smoker Substance Use Type: None - Medications Home Medications: Home Medications Medication Instructions Recorded Confirmed Last Taken Type Emtricita/Rilpivirine/Tenof Df 1 tab PO DAILY 02/02/15 04/07/15 02/14/15 History [Complera Tablet] Albuterol Sulfate [Albuterol 0.63% 0.63 mg IH Q4HR PRN #2 ml 04/07/15 Unknown Rx NEBS] Albuterol Sulfate [Proair 90 mcg IH Q4HR PRN #2 aer.pow.ba 04/07/15 Unknown Rx Respiclick] Ipratropium [facility] [Atrovent Hfa] 12.9 gm IH Q4HR #2 hfa.aer.ad 04/07/15 Unknown Rx Ipratropium [Atrovent NEB] 0.5 mg IH Q4HR #2 ml 04/07/15 Unknown Rx Naproxen [Naprosyn] 500 mg PO BID PRN #20 tablet 03/23/18 Unknown Rx predniSONE [Prednisone] 50 mg PO DAILY #5 tablet 03/23/18 Unknown Rx Albuterol Mdi (or & Nicu Only) 2 puff IH QID PRN #8.5 gram 02/14/19 Unknown Rx [ProAir HFA Inhaler] Azithromycin [Zithromax Z-HUSSEIN] 250 mg PO DAILY #1 tab 02/14/19 Unknown Rx Benzonatate [Tessalon Perles] 100 mg PO Q8HR PRN #30 capsule 02/14/19 Unknown Rx Ipratropium (Nf) [Atrovent HFA 2 puff IH Q6HR PRN #1 inha 02/14/19 Unknown Rx 17MCG/PUFF] dexAMETHasone [Decadron] 4 mg PO Q12H 3 Days #6 tablet 02/14/19 Unknown Rx Meclizine [Antivert] 25 mg PO TID PRN #30 tab 03/25/21 Unknown Rx Acetaminophen [Non-Aspirin Extra 500 mg PO Q6HR PRN #30 tablet 03/29/21 Unknown Rx Strength] Ibuprofen [Motrin] 600 mg PO Q8H PRN #30 tablet 03/29/21 Unknown Rx ED Physical Exam - General Limitations: No Limitations General appearance: alert, obese - Head Head exam: Present: atraumatic, normocephalic - Eye Eye exam: Present: normal appearance, EOMI. Absent: nystagmus - ENT ENT exam: Present: normal exam, normal orophraynx, mucous membranes moist, normal external ear exam - Neck Neck exam: Present: normal inspection, full ROM. Absent: tenderness, meningismus - Respiratory Respiratory exam: Present: normal lung sounds bilaterally, chest wall te nderness. Absent: respiratory distress, wheezes, rales, rhonchi, stridor, decreased breath sounds - Cardiovascular Cardiovascular Exam: Present: normal rhythm, tachycardia, normal heart sounds. Absent: bradycardia, irregular rhythm, systolic murmur, diastolic murmur, rubs, gallop - GI/Abdominal GI/Abdominal exam: Present: soft. Absent: distended, tenderness, guarding, rebound, pulsatile mass - Extremities Exam Extremities exam: Present: normal inspection, full ROM, other (2+ pulses noted in the bilateral upper and lower extremities. There is no palpable cord. negative Homans sign. Muscular compartments are soft. The pelvis is stable.). Absent: pedal edema, calf tenderness - Back Exam Back exam: Present: normal inspection. Absent: tenderness, CVA tenderness (R), CVA tenderness (L), paraspinal tenderness, vertebral tenderness - Neurological Exam Neurological exam: Present: alert, oriented X3, normal gait, other (No facial droop. Tongue midline. Extraocular movements intact bilaterally. Facial sensation intact to light touch in V1, V2, V3 distribution bilaterally. 5 and a 5 strength in 4 extremities. Sensation intact to light touch in 4 extremities.). Absent: motor sensory deficit - Psychiatric Psychiatric exam: Present: anxious - Skin Skin exam: Present: warm, dry, intact, normal color. Absent: rash ED Course - Reevaluation(s) Reevaluation #1: 03/29/21 04:15 Differential diagnosis, including but not limited to: Costochondritis, thyroid derangement, electrolyte derangement, anxiety, musculoskeletal chest wall pain, radicular pain, coronary artery disease, pulmonary embolism Assessment and plan: 50-year-old female who is obese, with a history of HIV, denies travel, surgery, immobilization, DVT/PE risk factors, who is low risk by Wells criteria for pulmonary embolism, who is tachycardic, with hypertension, with left arm pain, palpitations, heart racing, and chest wall tenderness. Treat the patient's symptoms. Obtain appropriate laboratory studies and x-ray the chest as well as EKG. Reassess. 03/29/21 05:32 Laboratory studies reviewed and appreciated. They are unremarkable with exception of elevated D-dimer. CT scan of the chest ordered and pending. Repeat troponin, repeat EKG pending. Care be transferred to the oncoming ER physician, to follow-up on repeat troponin, EKG, and CT scan of the chest. Presuming they are negative, plan is to discharge this patient to follow-up with an outpatient primary care doctor and or telecommunications line mechanic. ED Medical Decision Making - Lab Data Result diagrams: 03/29/21 04:07 03/29/21 04:07 Vital Signs 03/29/21 03/29/21 03:49 04:12 Temperature 98.0 F Pulse Rate 117 H Respiratory 20 14 Rate Blood Pressure 178/91 O2 Sat by Pulse 97 Oximetry - EKG Data -: EKG Interpreted by [facility] EKG shows normal: sinus rhythm Rate: tachycardia - EKG Data 03/29/21 04:14 The EKG is interpreted at 4: 00 AM Sinus rhythm, rate 115 bpm. Normal axis, normal P wave axis, QTC 457 ms. Poor R wave progression. Abnormal EKG. Not a STEMI - Radiology Data Radiology results: pending, report reviewed, image reviewed CHEST 2 VIEWS INDICATION: chest Pain. COMPARISON: 02/14/2019 FINDINGS: SUPPORT DEVICES: None. HEART: Within normal limits. LUNGS/PLEURA: No acute air space or interstitial disease. No pneumothorax. ADDITIONAL FINDINGS: None. IMPRESSION: 1. No acute findings. Signer Name: Tang Galindo MD Signed: 03/29/2021 3:39 AM Workstation Name: [id number] ED Disposition Clinical Impression: Palpitations, Chest wall pain Disposition: HOME / SELF CARE / HOMELESS Is pt being admited?: No Does the pt Need Aspirin: No Condition: Good Instructions: Palpitations, Costochondritis Additional Instructions: Please continue current outpatient medications. Please take the prescribed pain medications as needed and directed. Minimize/avoid consumption of alcohol, tobacco and smoke products. Avoid consumption of heavy and spicy foods. Do not take metformin medication for the next 2 days, if patient takes this medication. Please follow-up with a primary care doctor or telecommunications line mechanic within the next 3 to 5 days. Please return to the emergency room right away with new pain, worsened pain, m igration of pain, projectile vomiting, change in mental status, confusion, inability tolerate liquid feeds, new, worsened or different symptoms not present on the initial emergency room evaluation Prescriptions: Ibuprofen [Motrin] 600 mg PO Q8H PRN #30 tablet PRN Reason: Pain Acetaminophen [Non-Aspirin Extra Strength] 500 mg PO Q6HR PRN #30 tablet PRN Reason: Pain , Severe (7-10) Referrals: [facility] [Provider Group] - 3-5 Days [facility] [Provider Group] - 3-5 Days ALECIA CHANG MD [Staff Physician] - 3-5 Days Heart Score - HEART Score History: Slightly suspicious EKG: Non-specific Age: 45-65 Risk factors: 1-2 risk factors Troponin: < normal limit HEART Score: 3 - EKG Read Time Time EKG Completed: 04:00 EKG Read Time: 04:00 - Critical Actions Critical Actions: 0-3 pts:0.9-1.7%risk of adverse cardiac event.Candidate for discharge <TORRES JOHNSON - Last Filed: 03/29/21 07:53> ED Review of Systems ROS: Stated complaint: My left arm is hurting, my heart is racing Other details as noted in HPI ED Course Vital Signs 03/29/21 03/29/21 03:49 04:12 Temperature 98.0 F Pulse Rate 117 H Respiratory 20 14 Rate Blood Pressure 178/91 O2 Sat by Pulse 97 Oximetry ED Medical Decision Making - Lab Data Result diagrams: 03/29/21 04:07 03/29/21 04:07 Laboratory Results - last 24 hr 03/29/21 03/29/21 03/29/21 04:07 04:07 04:24 WBC 6.9 RBC 4.69 Hgb 14.8 H Hct 44.9 H MCV 96 MCH 32 MCHC 33 RDW 13.3 Plt Count 252 Lymph % (Auto) 37.4 H [place] % (Auto) 10.1 H Eos % (Auto) 3.3 Baso % (Auto) 0.8 Lymph # (Auto) 2.6 [place] # (Auto) 0.7 Eos # (Auto) 0.2 Baso # (Auto) 0.1 Seg Neutrophils % 48.4 Seg Neutrophils # 3.3 PT 13.1 INR 0.89 D-Dimer 247.24 H Sodium 138 Potassium 5.2 H D Chloride 99.8 Carbon Dioxide 25 Anion Gap 18 BUN 11 Creatinine 0.8 Estimated GFR > 60 BUN/Creatinine Ratio 14 Glucose 115 H Calcium 10.1 Magnesium 1.90 Total Bilirubin 0.40 AST 31 ALT 27 Alkaline Phosphatase 102 Troponin T < 0.010 Total Protein 7.9 Albumin 4.6 Albumin/Globulin Ratio 1.4 TSH 03/29/21 03/29/21 04:24 06:51 WBC RBC Hgb Hct MCV MCH MCHC RDW Plt Count Lymph % (Auto) [place] % (Auto) Eos % (Auto) Baso % (Auto) Lymph # (Auto) [place] # (Auto) Eos # (Auto) Baso # (Auto) Seg Neutrophils % Seg Neutrophils # PT INR D-Dimer Sodium Potassium Chloride Carbon Dioxide Anion Gap BUN Creatinine Estimated GFR BUN/Creatinine Ratio Glucose Calcium Magnesium Total Bilirubin AST ALT Alkaline Phosphatase Troponin T < 0.010 Total Protein Albumin Albumin/Globulin Ratio TSH 0.433 - EKG Data 03/29/21 07:52 2nd EKG obtained 0747 2nd EKG interpreted by Dr. Torres Johnson Repeat EKG rate 75 bpm normal sinus rhythm normal axis normal intervals no significant ST elevation nonischemic T wave pattern - Radiology Data Patient Name: ELLIOT PEMBERTON Gender: Female Date of : 1970 Referring Provider: KARLENE CABA Organization: [facility] Accession Number: [id number] Requested Date: March 29, 2021 05:50 Report Status: Final Requested Procedure: 1 Procedure Description: CT angio chest Modality: CT Findings Reporting MD: Tang Galindo Dictation Time: March 29, 2021 05:21 Climatology Professor: Not available Biosecurity Officer Date: CTA chest with contrast INDICATION : Tachycardia, palpitations, elevated D-dimer, chest. TECHNIQUE: Axial imaging performed through the chest, with contrast bolus timing set to maximize opacification of the pulmonary arteries. 3-plane MIP reformatted images were obtained. All CT scans at this location are performed using CT dose reduction for ALARA by means of automated exposure control. 100 mL of intravenous contrast administered. COMPARISON: CTA chest from 04/07/2015 FINDINGS: Bolus/PTE: Contrast bolus timing is adequate. No filling defect is present to suggest PTE. Mediastinum: Heart and great vessels appear normal. No pathologic mediastinal adenopathy. Lungs: Lungs are clear. Upper abdomen: Limited imaging of the upper abdomen shows nothing acute. Bones: Degenerative changes in the spine with nothing acute. IMPRESSION: Negative for PTE. Clear lungs. Signer Name: Tang Galindo MD Signed: 03/29/2021 5:21 AM Workstation Name: [id number] - Medical Decision Making This is a 50-year-old female with history of HIV, hypertension, anemia who presents with chest pain rating to the left arm. Heart score 3. Troponin x2 both negative. Serial EKG without signs of acute infarct or ischemia. Patient is appropriate for outpatient cardiac restratification. CT angiogram negative for pulmonary embolism. I have reviewed electronic record. Patient has had persistent tachycardia since 2016. Prior to 2016 she had normal heart rate. I suspect right-sided heart failure pulmonary hypertension with noted BMI 43. I strongly encourage patient to obtain outpatient cardiology evaluation. She will need echocardiogram. She will also benefit from sleep study to the screen for obstructive sleep apnea. I have referred her to telecommunications line mechanic and internal medicine physician. I also faxed referral request form to the [place] [facility]. Repeat EKG revealed resolution of tachycardia. Rate 75 bpm. Anxiety and pain likely contributing causes of tachycardia I spoke with patient. I gave her the results of test performed here in the emergency department. I gave her counseling regarding lifestyle modification. Critical care attestation.: If time is entered above; I have spent that time in minutes in the direct care of this critically ill patient, excluding procedure time. ED Disposition Is pt being admited?: No Does the pt Need Aspirin: No
[2021-03-29 04:08] VITALS: BP 178/91
[2021-03-29] MEDS ORDERED: diphenhydrAMINE 50 MG/ML VIAL IV ONE (04:10)
[2021-03-29] MEDS ORDERED: FAMOTIDINE 20 MG/2 ML INJ IV ONE (04:10)
[2021-03-29] MEDS ORDERED: SODIUM CHLORIDE 0.9% 1000 ML 1,000 ML IV ONE (04:10)
[2021-03-29 04:22] LABS: Basophils # (Auto) 0.1 K/mm3 (0.0-0.1); Basophils % (Auto) 0.8 % (0.0-1.8); Eosinophils # (Auto) 0.2 K/mm3 (0.0-0.4); Eosinophils % (Auto) 3.3 % (0.0-4.3); Hematocrit 44.9 % (30.3-42.9); Hemoglobin 14.8 gm/dl (10.1-14.3); Lymphocytes # (Auto) 2.6 K/mm3 (1.2-5.4); Lymphocytes % (Auto) 37.4 % (13.4-35.0); Mean Corpuscular HGB Conc 33 % (30-34); Mean Corpuscular Volume 96 fl (79-97); Monocytes # (Auto) 0.7 K/mm3 (0.0-0.8); Monocytes % (Auto) 10.1 % (0.0-7.3); Platelet Count 252 K/mm3 (140-440); Red Blood Count 4.69 M/mm3 (3.65-5.03); Red Cell Distribution Width 13.3 % (13.2-15.2)
--- NOTE | 2021-03-29 04:43 | XRay Report ---
CHEST 2 VIEWS INDICATION: chest Pain. COMPARISON: 02/14/2019 FINDINGS: SUPPORT DEVICES: None. HEART: Within normal limits. LUNGS/PLEURA: No acute air space or interstitial disease. No pneumothorax. ADDITIONAL FINDINGS: None. IMPRESSION: 1. No acute findings. Signer Name: Tang Galindo MD Signed: 03/29/2021 4:39 AM Workstation Name: [id number]
[2021-03-29 04:45] LABS: INR 0.89 (0.87-1.13)
[2021-03-29 04:48] LABS: Alanine Aminotransferase 27 units/L (7-56); Albumin 4.6 g/dL (3.9-5); BUN/Creatinine Ratio 14; Blood Urea Nitrogen 11 mg/dL (7-17); Calcium 10.1 mg/dL (8.4-10.2); Hemolysis Index 39
--- NOTE | 2021-03-29 06:25 | Cat Scan Report ---
CTA chest with contrast INDICATION : Tachycardia, palpitations, elevated D-dimer, chest. TECHNIQUE: Axial imaging performed through the chest, with contrast bolus timing set to maximize opa cification of the pulmonary arteries. 3-plane MIP reformatted images were obtained. All CT scans at this location are performed using CT dose reduction for ALARA by means of automated exposure control. 100 mL of intravenous contrast administered. COMPARISON: CTA chest from 04/07/2015 FINDINGS: Bolus/PTE: Contrast bolus timing is adequate. No filling defect is present to suggest PTE. Mediastinum: Heart and great vessels appear normal. No pathologic mediastinal adenopathy. Lungs: Lungs are clear. Upper abdomen: Limited imaging of the upper abdomen shows nothing acute. Bones: Degenerative changes in the spine with nothing acute. IMPRESSION: Negative for PTE. Clear lungs. Signer Name: Tang Galindo MD Signed: 03/29/2021 6:21 AM Workstation Name: [id number]
--- NOTE | 2021-03-29 11:11 | Electrocardiograph Report ---
[facility] Test Date: 2021-03-29 Test Time: 03:59:35 Pat Name: ELLIOT PEMBERTON Department: Room: Gender: F Bill Of Lading Clerk: [id number] : 1970 Requested By: NAJMA COOPER Order Number: [id number] Reading MD: Gen Gill Measurements Intervals [place] Rate: 115 P: 78 SD: 180 QRS: 41 QRSD: 84 T: 55 QT: 331 QTc: 457 Interpretive Statements Sinus tachycardia Probable left atrial enlargement Anteroseptal infarct, old Compared to ECG 03/25/2021 12:25:51, rate is faster,otherwise,no significant change noted. Electronically Signed On 03-29-2021 11:10:33 EST by Gen Gill
--- NOTE | 2021-03-29 11:15 | Electrocardiograph Report ---
[facility] Test Date: 2021-03-29 Test Time: 07:47:49 Pat Name: ELLIOT PEMBERTON Department: Room: Gender: F Production Control Clerk: PAXTON : 1970 Requested By: KARLENE CABA Order Number: [id number] Reading MD: Gen Gill Measurements Intervals [place] Rate: 75 P: 63 CA: 204 QRS: 10 QRSD: 85 T: 23 QT: 400 QTc: 446 Interpretive Statements Sinus rhythm Borderline prolonged CA interval Consider anterior infarct Compared to ECG 03/29/2021 03:59:35 Sinus tachycardia no longer present Myocardial infarct finding still present Electronically Signed On 03-29-2021 11:15:27 EST by Gen Gill
== END 2021-03-29 08:20 | disposition home or self-care (01) ==
LOC: ED 03:46
DX: R00.2 Palpitations (principal); R07.9 Chest pain, unspecified; I10 Essential (primary) hypertension; J45.909 Unspecified asthma, uncomplicated
CPT/HCPCS: 36415; 71046; 71275; 80053; 83735; 84443; 84484; 85025; 85379; 85610; 93005; 96361; 96374; 96375; 99284; J1200; J3490; J7030; Q9967; Q0162